=== PATIENT | male | born 1950 | race Two or more races ===

== ENCOUNTER 2021-01-14 10:07 | Emergency (ER) | payer OTHER ==
[~2021-01-14] VITALS: Ht 177.8 cm; Wt 85.7 kg
[2021-01-14] MEDS ORDERED: DICLOFENAC SODI50 MG PO (12:11)
== END 2021-01-14 12:51 | disposition home or self-care (01) ==
LOC: ER 10:07
DX: S93.491A Sprain of other ligament of right ankle, initial encounter (principal); X50.0XXA Overexertion from strenuous movement or load, initial encounter; Y93.41 Activity, dancing; Y92.89 Other specified places as the place of occurrence of the external cause; Y99.8 Other external cause status

== ENCOUNTER 2021-01-14 14:06 | Outpatient (CLI) | payer OTHER ==
[~2021-01-14 14:06] MED LIST: DICLOFENAC SODI50 MG PO
== END 2021-01-14 14:13 | disposition home or self-care (01) ==
LOC: LAB 14:06
PROVIDERS: ATTEND Orthopaedic Surgery
DX: D64.89 Other specified anemias (principal); M06.4 Inflammatory polyarthropathy; M10.09 Idiopathic gout, multiple sites; E55.9 Vitamin D deficiency, unspecified; M85.89 Other specified disorders of bone density and structure, multiple sites; E88.89 Other specified metabolic disorders

== ENCOUNTER → 2021-05-02 11:34 | Outpatient (CLI) | payer OTHER | END | disposition home or self-care (01) | LOC: LAB 11:34 | PROVIDERS: ATTEND Orthopaedic Surgery | DX: E55.9 Vitamin D deficiency, unspecified (principal); M85.9 Disorder of bone density and structure, unspecified; E56.1 Deficiency of vitamin K ==

== ENCOUNTER 2021-08-15 12:11 | Outpatient (CLI) | payer OTHER | END 2021-08-15 12:29 | disposition home or self-care (01) | LOC: RAD 12:11 | PROVIDERS: ATTEND Orthopaedic Surgery | DX: M25.561 Pain in right knee (principal); M25.562 Pain in left knee ==

== ENCOUNTER 2021-09-10 09:43 | Outpatient (CLI) | payer OTHER | END 2021-09-10 09:57 | disposition home or self-care (01) | LOC: SONOGRAMA 09:43 | PROVIDERS: ATTEND Orthopaedic Surgery | DX: M25.511 Pain in right shoulder (principal); M25.512 Pain in left shoulder; M75.42 Impingement syndrome of left shoulder ==

== ENCOUNTER 2021-11-21 13:27 | Outpatient (CLI) | payer OTHER | END 2021-11-21 13:38 | disposition home or self-care (01) | LOC: LAB 13:27 | PROVIDERS: ATTEND Orthopaedic Surgery | DX: M75.122 Complete rotator cuff tear or rupture of left shoulder, not specified as traumatic (principal); N28.89 Other specified disorders of kidney and ureter ==

== ENCOUNTER 2021-11-21 14:31 | Outpatient (CLI) | payer OTHER | END 2021-11-21 14:32 | disposition home or self-care (01) | LOC: RAD 14:31 | PROVIDERS: ATTEND Orthopaedic Surgery | DX: M75.122 Complete rotator cuff tear or rupture of left shoulder, not specified as traumatic (principal) ==

== ENCOUNTER 2021-11-24 09:24 | Outpatient (CLI) | payer OTHER | END 2021-11-24 09:31 | disposition home or self-care (01) | LOC: MRI 09:24 | PROVIDERS: ATTEND Orthopaedic Surgery | DX: M75.122 Complete rotator cuff tear or rupture of left shoulder, not specified as traumatic (principal) | CPT/HCPCS: 73222 ==

== ENCOUNTER 2022-12-13 08:52 | Emergency (ER) | payer OTHER ==
[~2022-12-13] VITALS: Ht 170.2 cm; Wt 72.6 kg
== END 2022-12-13 13:38 | disposition home or self-care (01) ==
LOC: ER 08:52
DX: M25.561 Pain in right knee (principal); M12.9 Arthropathy, unspecified

== ENCOUNTER 2023-01-18 14:30 | Emergency (ER) | payer OTHER ==
[~2023-01-18] VITALS: Ht 175.3 cm; Wt 83.9 kg
== END 2023-01-18 15:11 | disposition home or self-care (01) ==
LOC: ER 14:30
DX: M10.9 Gout, unspecified (principal); M25.561 Pain in right knee

== ENCOUNTER → 2023-02-10 | Emergency (ER) | payer OTHER ==
[~2023-02-10] VITALS: Ht 170.2 cm; Wt 76.2 kg
== END | disposition left against medical advice (07) ==
LOC: ER 21:58
DX: Z53.21 Procedure and treatment not carried out due to patient leaving prior to being seen by health care provider (principal)

== ENCOUNTER 2023-03-20 03:26 | Emergency (ER) | payer OTHER ==
[~2023-03-20] VITALS: Ht 175.3 cm; Wt 77.1 kg
[2023-03-20] MEDS ORDERED: ZESTRIL10 M1 (03:37)
[2023-03-20] MEDS ORDERED: ARICEPT5 MG (03:37)
[2023-03-20] MEDS ORDERED: NEURONTIN300 MG (03:37)
== END 2023-03-20 08:59 | disposition home or self-care (01) ==
LOC: ER 03:26
DX: M10.9 Gout, unspecified (principal)

== ENCOUNTER 2023-06-05 02:33 | Emergency (ER) | payer OTHER ==
[~2023-06-05] VITALS: Ht 170.2 cm; Wt 81.6 kg
[~2023-06-05 02:33] MED LIST changes: +ARICEPT5 MG; +NEURONTIN300 MG; +ZESTRIL10 M1
== END 2023-06-05 10:01 | disposition home or self-care (01) ==
LOC: ER 02:33
DX: F10.129 Alcohol abuse with intoxication, unspecified (principal)

== ENCOUNTER 2024-09-29 17:50 | Emergency (ER) | payer OTHER ==
[~2024-09-29] VITALS: Ht 175.3 cm; Wt 86.2 kg
[2024-09-29] MEDS ORDERED: DIPHENHYDRAMINE HCL 50 MG/ML VIAL 1ML IM ONE (19:00)
[2024-09-29 19:54] LABS: HEMATOCRIT 39.6 % (39.0-48.0); MEAN CELL VOLUME 88.4 fL (80.0-100.00); MEAN CORPUSCULAR HEMOGLOBIN 31.2 pg (27.00-32.0); MEAN CORPUSCULAR HGB CONC 35.3 g/dl (32.0-36.0); PLATELET COUNT 237 K/uL (150-450); RED BLOOD COUNT 4.48 M/uL (4.00-6.00)
[2024-09-29 20:12] LABS: ALBUMIN 4.1 gm/dL (3.4-5.0); BILIRUBIN TOTAL 0.39 mg/dL (0.3-1.2); CALCIUM 9.8 mg/dL (8.5-10.1); CREATININE SERUM 0.55 mg/dL (0.70-1.30); GFR 146.43; GLOBULINA 4.8 G/DL (2.4-3.5); POTASSIUM 3.69 mEq/L (3.5-5.1); TOTAL PROTEIN 8.9 gm/dL (6.4-8.2)
[2024-09-29 20:28] LABS: PH,URINE 6.5 (5.0-8.0); URINE APPEARANCE Clear; URINE BACTERIA 99.5 uL (0.0-1933); URINE BILIRRUBIN Negative (NEGATIVE); URINE BLOOD Negative; URINE COLOR Yellow; URINE EPITHELIAL CELLS 3.2 uL (0.0-38.8); URINE GLUCOSE Negative (NEGATIVE); URINE KETONE Negative (NEGATIVE); URINE LEUKOCYTE Trace; URINE NITRATE Negative; URINE PROTEIN Negative (NEGATIVE); URINE RBC 16.6 uL (0.0-20.8); URINE WBC 17.5 uL (0.0-23.2)
[2024-09-29 20:37] LABS: COCAINE NEGATIVE (NEGATIVE); METHADONE NEGATIVE (NEGATIVE); OPIATES NEGATIVE (NEGATIVE); THC ( Cannabinoids) NEGATIVE (NEGATIVE)
== END 2024-09-29 22:52 | disposition home or self-care (01) ==
LOC: ER 17:52
PROVIDERS: General Practice
DX: R53.1 Weakness (principal); M10.9 Gout, unspecified

== ENCOUNTER 2024-09-30 02:35 | Emergency (ER) | payer OTHER ==
[~2024-09-30] VITALS: Ht 160 cm; Wt 81.6 kg
== END 2024-09-30 10:59 | disposition home or self-care (01) ==
LOC: ER 02:35
DX: F10.10 Alcohol abuse, uncomplicated (principal)

== ENCOUNTER 2024-10-02 12:02 | Emergency (ER) | payer OTHER ==
[~2024-10-02] VITALS: Ht 180.3 cm; Wt 95.3 kg
[2024-10-02 12:13] VITALS: BP 117/70; O2SAT 97
[2024-10-02] MEDS ORDERED: ZESTRIL2.5 MG PO (12:14)
[2024-10-02] MEDS ORDERED: 0.9 % SODIUM CHLORIDE 1,000 ML IV ONE (12:30)
[2024-10-02] MEDS ORDERED: FAMOtidine 10 MG/ML (4ML VIAL) IV ONE (12:30)
[2024-10-02 13:01] LABS: HEMATOCRIT 38.1 % (39.0-48.0); MEAN CELL VOLUME 90.2 fL (80.0-100.00); MEAN CORPUSCULAR HEMOGLOBIN 30.8 pg (27.00-32.0); MEAN CORPUSCULAR HGB CONC 34.2 g/dl (32.0-36.0); PLATELET COUNT 216 K/uL (150-450); RED BLOOD COUNT 4.23 M/uL (4.00-6.00)
[2024-10-02 13:30] LABS: BILIRUBIN TOTAL 0.53 mg/dL (0.3-1.2); CALCIUM 9.8 mg/dL (8.5-10.1); CREATININE SERUM 0.55 mg/dL (0.70-1.30); GFR 146.43; GLOBULINA 4.4 G/DL (2.4-3.5); POTASSIUM 4.08 mEq/L (3.5-5.1); TOTAL PROTEIN 8.4 gm/dL (6.4-8.2)
[2024-10-02 16:30] LABS: URINE APPEARANCE Clear; URINE BILIRRUBIN Negative (NEGATIVE); URINE BLOOD Negative; URINE COLOR Yellow; URINE GLUCOSE Negative (NEGATIVE); URINE KETONE Negative (NEGATIVE); URINE LEUKOCYTE Negative; URINE NITRATE Negative; URINE PROTEIN Negative (NEGATIVE)
[2024-10-02 16:34] LABS: URINE BACTERIA 27.7 uL (0.0-1933); URINE RBC 12.9 uL (0.0-20.8)
[2024-10-02 16:41] LABS: URINE WBC 1.3 uL (0.0-23.2)
[2024-10-02 16:42] LABS: URINE EPITHELIAL CELLS 1.2 uL (0.0-38.8)
== END 2024-10-02 21:59 | disposition home or self-care (01) ==
LOC: ER 12:02
PROVIDERS: General Practice
DX: R53.1 Weakness (principal); F10.10 Alcohol abuse, uncomplicated